=== PATIENT | female | born 1975 | race American Indian/Alaskan Native ===

== ENCOUNTER 2017-09-08 23:02 | Emergency (ER) | payer SELFPAY ==
[2017-09-09 00:52] LABS: Anion Gap 20 mmol/L; BUN/Creatinine Ratio 15; Basophils % (Auto) 0.9 % (0.0-1.8); Blood Urea Nitrogen 9 mg/dL (7-17); Calcium 8.9 mg/dL (8.4-10.2); Carbon Dioxide 26 mmol/L (22-30); Chloride 94.1 mmol/L (98-107); Eosinophils % (Auto) 4.7 % (0.0-4.3); Glucose 492 mg/dL (65-100); Hematocrit 30.1 % (30.3-42.9); Hemoglobin 9.6 gm/dl (10.1-14.3); Mean Corpuscular HGB Conc 32 % (30-34); Mean Corpuscular Hemoglobin 27 pg (28-32); Mean Corpuscular Volume 85 fl (79-97); Platelet Count 317 K/mm3 (140-440); Potassium 5.1 mmol/L (3.6-5.0); Red Blood Count 3.55 M/mm3 (3.65-5.03); Red Cell Distribution Width 14.4 % (13.2-15.2); Sodium 135 mmol/L (137-145); White Blood Count 7.5 K/mm3 (4.5-11.0)
[2017-09-09] MEDS ORDERED: NACL 0.9% 1000 ML 1,000 ML IV ONE (10:27)
--- NOTE | 2017-09-09 10:41 | Emergency Department Report ---
ED Chest Pain HPI - General Chief Complaint: Chest Pain Stated Complaint: CP Time Seen by Provider: 09/09/17 10:39 Source: patient Mode of arrival: Ambulatory Limitations: No Limitations - History of Present Illness Initial Comments: Patient complains of substernal chest pain and dyspnea of 3 days' duration. She is a very poor historian. She is somewhat agitated time of my encounter. She denies prior workup for chest pain. She denies prior admission to the hospital. She has no explanation as to why she is noncompliant with her insulin. She just states that she is not taking it. Complaint: chest pain -: days(s) Onset: during rest Pain Location: substernal Pain Radiation: other (very poor historian and difficult to ascertain) Severity: moderate Quality: other (patient did not characterize) Consistency: intermittent Improves With: nothing Worsens With: nothing re: dyspnea. denies: nausea, vomting, diaphoresis Other Symptoms: denies: cough, fever, syncope Aspirin use within the Past 7 Days: (0) No - Related Data Previous Rx's Medication Instructions Recorded Last Taken Type Glimepiride [Amaryl] 2 mg PO QAM #30 tablet 09/09/17 Unknown Rx Ibuprofen 400 mg PO Q8H #30 tablet 09/09/17 Unknown Rx Allergies Allergy/AdvReac Type Severity Reaction Status Date / Time No Known Allergies Allergy Unverified 09/09/17 00:16 Heart Score - HEART Score History: Moderately suspicious EKG: Non-specific Age: < 45 Risk factors: > 3 risk factors or hx of atherosclerotic disease Troponin: < normal limit HEART Score: 4 - Critical Actions Critical Actions: 4-6 pts:12-16.6% risk of adverse cardiac event. Should be admitted ED Review of Systems ROS: Stated complaint: CP Other details as noted in HPI Comment: Unobtainable due to pts medical conditions (patient is poorly cooperative with review of systems.) ED Past Medical Hx - Past Medical History Hx Diabetes: Yes - Surgical History Additional Surgical History: X 2 - Social History Smoking Status: Never Smoker Substance Use Type: Other (unknown) - Medications Home Medications: Home Medications Medication Instructions Recorded Confirmed Last Taken Type Glimepiride [Amaryl] 2 mg PO QAM #30 tablet 09/09/17 Unknown Rx Ibuprofen 400 mg PO Q8H #30 tablet 09/09/17 Unknown Rx ED Physical Exam - General Limitations: Other (poor cooperation) General appearance: alert, in no apparent distress - Head Head exam: Present: atraumatic, normocephalic - Eye Eye exam: Present: normal appearance, PERRL, EOMI. Absent: scleral icterus - ENT ENT exam: Present: mucous membranes moist - Neck Neck exam: Present: normal inspection. Absent: tenderness, meningismus - Respiratory Respiratory exam: Present: normal lung sounds bilaterally. Absent: respiratory distress - Cardiovascular Cardiovascular Exam: Present: regular rate, normal rhythm. Absent: systolic murmur, diastolic murmur, rubs, gallop - GI/Abdominal GI/Abdominal exam: Present: soft, normal bowel sounds. Absent: distended, tenderness, guarding, rebound, rigid - Extremities Exam Extremities exam: Present: normal inspection - Back Exam Back exam: Present: normal inspection - Neurological Exam Neurological exam: Present: alert, oriented X3, CN II-XII intact. Absent: motor sensory deficit - Psychiatric Psychiatric exam: Present: anxious, flat affect - Skin Skin exam: Present: warm, dry, intact, normal color. Absent: rash ED Course Vital Signs 09/09/17 09/09/17 09/09/17 00:06 05:16 09:30 Temperature 98.2 F 97.6 F Pulse Rate 109 H 100 H 100 H Respiratory 18 16 15 Rate Blood Pressure 161/92 123/76 121/79 O2 Sat by Pulse 99 97 100 Oximetry 09/09/17 09/09/17 09/09/17 09:46 10:00 10:16 Temperature Pulse Rate 100 H 98 H 100 H Respiratory 14 15 13 Rate Blood Pressure 125/80 112/71 121/79 O2 Sat by Pulse 98 99 100 Oximetry 09/09/17 09/09/17 09/09/17 10:30 10:46 11:00 Temperature Pulse Rate 98 H 97 H 102 H Respiratory 16 26 H 14 Rate Blood Pressure 121/79 153/89 143/83 O2 Sat by Pulse 100 100 100 Oximetry 09/09/17 09/09/17 09/09/17 11:16 11:30 11:46 Temperature Pulse Rate 99 H 107 H 104 H Respiratory 23 14 14 Rate Blood Pressure 143/83 143/83 168/84 O2 Sat by Pulse 100 100 100 Oximetry 12/09/17 12/09/17 12/09/17 12:00 12:16 12:30 Temperature Pulse Rate 103 H 102 H 98 H Respiratory 11 L 9 L 12 Rate Blood Pressure 134/82 134/82 134/82 O2 Sat by Pulse 100 100 100 Oximetry 09/09/17 09/09/17 09/09/17 12:46 13:00 13:16 Temperature Pulse Rate 101 H 101 H 96 H Respiratory 13 12 12 Rate Blood Pressure 134/82 134/82 134/82 O2 Sat by Pulse 100 97 98 Oximetry 09/09/17 13:30 Temperature Pulse Rate 96 H Respiratory 13 Rate Blood Pressure 134/82 O2 Sat by Pulse 98 Oximetry - Reevaluation(s) Reevaluation #1: Patient with multiple risk factors for an acute coronary syndrome, medical noncompliance, uncontrolled hyperglycemia not taking insulin, hyperkalemia, abnormal EKG sinus tachycardia QS in V2. Patient referred to the hospitalist Dr. Niño, Brianna presumed for admission. 09/09/17 15:24 Reevaluation #2: Patient was given IV insulin. I did not know if she was given aspirin prior to discharge. I was unaware that she was discharged. 09/09/17 15:29 09/09/17 15:32 URMILA score - Urmila Score Age > 65: (0) No Aspirin use within the Past 7 Days: (0) No 3 or more CAD Risk Factors: (0) No 2 or more Angina events in past 24 hrs: (0) No Known CAD with more than 50% Stenosis: (0) No Elevated Cardiac Markers: (0) No ST Deviation Greater than 0.5mm: (0) No URMILA Score: 0 ED Medical Decision Making - Lab Data Result diagrams: 09/09/17 00:19 09/09/17 00:19 Laboratory Results - last 24 hr 09/09/17 09/09/17 09/09/17 00:19 00:19 04:40 WBC 7.5 RBC 3.55 L Hgb 9.6 L Hct 30.1 L MCV 85 MCH 27 L MCHC 32 RDW 14.4 Plt Count 317 Lymph % (Auto) 25.2 [place] % (Auto) 6.1 Eos % (Auto) 4.7 H Baso % (Auto) 0.9 Lymph # 1.9 [place] # 0.5 Eos # 0.4 Baso # 0.1 Seg Neutrophils % 63.1 Seg Neutrophils # 4.7 Sodium 135 L Potassium 5.1 H Chloride 94.1 L Carbon Dioxide 26 Anion Gap 20 BUN 9 Creatinine 0.6 L Estimated GFR > 60 BUN/Creatinine Ratio 15 Glucose 492 H Calcium 8.9 Troponin T < 0.010 < 0.010 - EKG Data -: EKG Interpreted by Me EKG shows normal: sinus rhythm, axis, intervals, ST-T waves Rate: tachycardia - EKG Data Interpretation: other (there is a QS in the while nonspecific could be consistent with old anteroseptal infarct.) - Radiology Data Radiology results: report reviewed interpreted by me: Chest x-ray showed no acute process Critical care attestation.: If time is entered above; I have spent that time in minutes in the direct care of this critically ill patient, excluding procedure time. ED Disposition Clinical Impression: Hyperkalemia Chest pain Qualifiers: Chest pain type: unspecified Qualified Code(s): R07.9 - Chest pain, unspecified Uncontrolled diabetes mellitus with hyperglycemia Qualifiers: Diabetes mellitus type: type 2 Diabetes mellitus manager long term care insulin use: unspecified manager long term care insulin use status Qualified Code(s): E11.65 - Type 2 diabetes mellitus with hyperglycemia Anemia Qualifiers: Anemia type: unspecified type Qualified Code(s): D64.9 - Anemia, unspecified Disposition: DC-09 OP ADMIT IP TO THIS HOSP Is pt being admited?: Yes Does the pt Need Aspirin: Yes Condition: Stable Instructions: Chest Pain (ED), Costochondritis (ED), Diabetes Mellitus Type 1 in Adults (ED), Diabetes Mellitus Type 2 in Adults (ED) Prescriptions: Glimepiride [Amaryl] 2 mg PO QAM #30 tablet Ibuprofen 400 mg PO Q8H #30 tablet Referrals: PRIMARY CAREMD [Primary Care Provider] - 3-5 Days Time of Disposition: 13:00
--- NOTE | 2017-09-09 10:45 | XRay Report ---
AP CHEST : 09/08/17 23:02:00 CLINICAL: Chest pain. COMPARISON:None FINDINGS: Normal heart and pulmonary vessels. The lungs are normally expanded and clear. The bones and soft tissues are unremarkable. IMPRESSION: Normal chest.
[2017-09-09] MEDS ORDERED: NORCO 5/325 PO ONE (10:56)
[2017-09-09 11:12] LABS: INR 0.95 (0.87-1.13)
[2017-09-09 11:13] LABS: Partial Thromboplastin Time 28.4 Sec. (24.2-36.6)
[2017-09-09 11:23] LABS: Alanine Aminotransferase 15 units/L (7-56); Albumin 3.5 g/dL (3.9-5); Albumin/Globulin Ratio 0.8 %; Alkaline Phosphatase 94 units/L (35-129); Total Protein 7.7 g/dL (6.3-8.2)
[2017-09-09 11:26] LABS: Bilirubin,Direct < 0.2 mg/dL (0-0.2); Bilirubin,Indirect 0.3 mg/dL
--- NOTE | 2017-09-09 12:48 | Event Note ---
Date: 09/09/17 Patient evaluated Non compliant with hypoglycemics for 3 months. Rt Side chest pain for 6 days. Tender to palpitation costochondral junction 2nd and 3rd costochondral junction Glucose 492 to 180\ Discharge Diagnosis Costochondritis Uncontrolled Diabetes sec to non compliance Patient discharged on Glimepride 2 mg po qd Ibuprofen 4000 mg tid prn F/u with [facility]
[2017-09-09 14:16] VITALS: BP 134/82
== END 2017-09-09 14:20 | disposition admitted as inpatient to this hospital (09) ==
LOC: ED 23:02
DX: E87.5 Hyperkalemia (principal); R07.2 Precordial pain; E11.65 Type 2 diabetes mellitus with hyperglycemia; D64.9 Anemia, unspecified
CPT/HCPCS: 36415; 71010; 80048; 80074; 82962; 83735; 83880; 84484; 85025; 85610; 85730; 93005; 93010; 96361; 96374; 99284; J7030; J1815